=== PATIENT | female | born 1955 | race Caucasian/White ===

== ENCOUNTER → 2016-12-05 | Outpatient (CLI) | payer BC ==
--- NOTE | 2016-12-05 09:09 | MA ---
Screening Digital Mammogram Clinical Indications: Routine screening. Mother with breast cancer at age 67. Technique: Standard cephalocaudal and mediolateral oblique projections are obtained. This examinati on is processed by the [employer] computer aided detection system. Comparison: November 2015 and 2014, October 2013 and 2011 Breast density: B; There are scattered fibroglandular densities. Findings: CAD was reviewed. Possible new architectural distortion upper left breast seen only on the oblique lateral view. Possible new small irregular nodule deep in the outer left breast seen only on the cc view. The right breast is stable. Impression: 2 developing densities in the left breast.. BI-RADS 0: Needs additional imaging evaluation, left breast . Recommendation: Spot compression views. If persistent, attempt to localize in the orthogonal plane m ammographically, and then proceed to ultrasound at the discretion of the interpreting radiologist.. [facility] will send a result letter to the patient. Negative mammography should not preclude additional workup of a clinically suspicious finding. The patient's information is entered into a reminder system with a target due date for her next mammo gram.
== END ==
LOC: BRMIMAGING 08:23
DX: Z12.31 Encounter for screening mammogram for malignant neoplasm of breast (principal); Z80.3 Family history of malignant neoplasm of breast
CPT/HCPCS: G0202

== ENCOUNTER → 2016-12-17 | Outpatient (CLI) | payer BC ==
--- NOTE | 2016-12-17 10:41 | MA ---
Diagnostic Digital Left Mammogram History: 2 asymmetries left breast. Comparison: December 05, 2016, November 2015, November 2014 and October 2013. Technique: A true lateral view and 4 spot films of the left breast. Density: B Findings: Architectural distortion does not persist and was likely related to overlapping parenchymal structures. A small nodular density in the far outer left breast does not persist and was likely rel ated to overlapping parenchymal structures or a cyst that has involuted.. Impression: Negative mammography. We will proceed with ultrasound in light of the patient's family hi story of breast cancer. BI-RADS 0. Additional imaging to follow.
--- NOTE | 2016-12-17 10:41 | US ---
Left Breast Ultrasound History: Possible architectural distortion seen on recent screening mammogram Technique: I first performed a directed physical examination. This was followed by ultrasound exam with a high frequency linear transducer. Findings: At the 1 o'clock radial 6 cm from the nipple is a 1.2 cm x 1.6 x 1.2 cm cyst with a mural n odule. The mural nodule measures approximately 3.5 mm. There is no internal vascularity in the mural nodule. This is not palpable. Impression: Nodule within the cyst. Recommend vacuum-assisted core biopsy to exclude papillary carcin oral. This finding is mammographically occult. Results discussed with the patient in great detail was given information about scheduling the ultraso und directed vacuum assisted core biopsy. A message was left for Dr. Reardon at 1038 a.m. BIRADS 4, Suspicious.
== END ==
LOC: BRMIMAGING 09:16
PROVIDERS: ATTEND Family Medicine
DX: N63 Unspecified lump in breast (principal)
CPT/HCPCS: 76641-PO; G0206

== ENCOUNTER → 2017-01-13 | Outpatient (CLI) | payer BC ==
[~2017-01-13] MED LIST: THROMBIN (RECOMBINANT) 5,000 UNIT VIAL TP ONE
== END ==
LOC: FIMAGING 11:24
PROVIDERS: ATTEND Family Medicine
PROC: 0HBU3ZX Excision of Left Breast, Percutaneous Approach, Diagnostic (ICD-10-PCS; principal; 2017-01-13)
DX: N60.12 Diffuse cystic mastopathy of left breast (principal)

== ENCOUNTER → 2017-08-11 | Outpatient (CLI) | payer BC | LOC: BRMIMAGING 09:05 | DX: Z12.39 Encounter for other screening for malignant neoplasm of breast (principal); R92.8 Other abnormal and inconclusive findings on diagnostic imaging of breast | CPT/HCPCS: 76641-PO; G0206 ==

== ENCOUNTER → 2017-12-12 | Outpatient (CLI) | payer BC | LOC: BRMIMAGING 08:16 | DX: Z12.31 Encounter for screening mammogram for malignant neoplasm of breast (principal); Z80.3 Family history of malignant neoplasm of breast ==

== ENCOUNTER → 2018-12-14 | Outpatient (CLI) | payer BC | LOC: BRMIMAGING 08:03 | DX: Z12.31 Encounter for screening mammogram for malignant neoplasm of breast (principal); Z80.3 Family history of malignant neoplasm of breast ==